=== PATIENT | female | born 1980 | race Caucasian/White ===

== ENCOUNTER 2017-06-26 19:06 | Emergency (ER) | payer OTHER ==
[~2017-06-26] VITALS: Ht 157.5 cm; Wt 52.2 kg
[~2017-06-26 19:06] MED LIST: ADDERALL XR 2020 MG PO; CYMBALTA20 MG PO; FIORICET 50-301 EACH PO; MIRALAX255 GM PO; PROPRANOLOL HCL80 M1 PO; REGLAN10 MG PO; SUBOXONE 2 MG-1 EACH SL; XANAX0.5 MG PO
[2017-06-26 19:56] LABS: ADD MIUA? YES; BILIRUBIN NEGATIVE; BLOOD NEGATIVE; GLUCOSE (STRIP) NEGATIVE; KETONES 5; LEUKOCYTES NEGATIVE; NITRITE NEGATIVE; PROTEIN (STRIP) NEGATIVE
[2017-06-26 19:59] LABS: BACTERIA RARE /HPF; EPITHELIAL CELLS RARE /HPF; MUCUS TRACE /LPF; RED BLOOD CELLS 0-5 /HPF (0-5); UCUL ADDED? NO; WHITE BLOOD CELLS 0-5 /HPF (0-5)
[2017-06-26 20:01] LABS: COLOR DK YELLOW ((YELLOW))
[2017-06-26 20:23] LABS: HEMATOCRIT 34.7 % (36.0-46.0); MCH 31.4 PG (29.0-34.0); MCHC 33.7 G/DL (30.0-36.0); PLATELET COUNT 319 K/uL (156-360); RBC DIS.WIDTH-CV 12.7 % (11.8-14.6); RBC DIS.WIDTH-SD 43.7 % (39-53); RED BLOOD COUNT 3.73 M/uL (3.80-5.20); WHITE BLOOD COUNT 9.7 K/uL (4.1-10.2)
[2017-06-26 20:31] LABS: CHLORIDE 105 mEq/L (99-109); POTASSIUM 3.6 mEq/L (3.7-5.4); SODIUM 136 mEq/L (136-147)
[2017-06-26 20:33] LABS: GLUCOSE 97 mg/dL (70-99)
[2017-06-26 20:35] LABS: ANION GAP 8 MEQ/L (2-14); TOTAL BILIRUBIN 0.4 mg/dL (0.0-1.0)
[2017-06-26 20:37] LABS: ALKALINE PHOSPHATASE 49 IU/L (3-129); GFR ESTIMATE (CALCULATED) > 59 mL/min/
[2017-06-26 20:38] LABS: UREA NITROGEN (BUN) 8 mg/dL (9-23)
[2017-06-26 20:40] LABS: LIPASE 32 U/L (1.0-51.0)
[2017-06-26 21:07] LABS: QUANTITATIVE HCG 18586.8 MIU/ML
[2017-06-26] MEDS ORDERED: ZOFRAN ODT4 MG PO (23:05)
[2017-06-26] MEDS ORDERED: PRENATAL VITAM1 EAC7 PO (23:05)
[2017-06-26 23:12] VITALS: BP 122/78
== END 2017-06-26 23:20 | disposition home or self-care (01) ==
LOC: EME 19:06
DX: O26.891 Other specified pregnancy related conditions, first trimester (principal); R10.2 Pelvic and perineal pain; R11.0 Nausea; O99.011 Anemia complicating pregnancy, first trimester; D64.9 Anemia, unspecified; O99.281 Endocrine, nutritional and metabolic diseases complicating pregnancy, first trimester; E86.0 Dehydration; O99.331 Smoking (tobacco) complicating pregnancy, first trimester; F17.200 Nicotine dependence, unspecified, uncomplicated; Z3A.01 Less than 8 weeks gestation of pregnancy
CPT/HCPCS: 76801; 80053; 81003; 83690; 84702; 85027; 99281; 99285; J7030

== ENCOUNTER 2017-11-12 18:57 | Outpatient (CLI) | payer OTHER ==
[~2017-11-12] VITALS: Ht 157.5 cm; Wt 62.8 kg
[~2017-11-12 18:57] MED LIST changes: +PRENATAL VITAM1 EAC7 PO; +ZOFRAN ODT4 MG PO
[2017-11-12 19:32] LABS: HEMATOCRIT 30.6 % (36.0-46.0); HEMOGLOBIN 10.6 G/DL (11.9-15.5); MCH 32.6 PG (29.0-34.0); MCHC 34.6 G/DL (30.0-36.0); MCV 94.2 FL (83-99); PLATELET COUNT 242 K/uL (156-360); RBC DIS.WIDTH-CV 12.5 % (11.8-14.6); RBC DIS.WIDTH-SD 43.3 % (39-53); RED BLOOD COUNT 3.25 M/uL (3.80-5.20); WHITE BLOOD COUNT 13.8 K/uL (4.1-10.2)
[2017-11-12 19:41] LABS: ALBUMIN 3.5 g/dL (3.2-4.8)
[2017-11-12 19:42] LABS: CHLORIDE 103 mEq/L (99-109); POTASSIUM 3.7 mEq/L (3.7-5.4); SODIUM 137 mEq/L (136-147)
[2017-11-12 19:44] LABS: GLUCOSE 96 mg/dL (70-99); TOTAL PROTEIN 6.2 g/dL (6.4-8.3)
[2017-11-12 19:46] LABS: TOTAL BILIRUBIN 0.4 mg/dL (0.0-1.0)
[2017-11-12 19:47] LABS: ALKALINE PHOSPHATASE 92 IU/L (3-129)
[2017-11-12 19:48] LABS: CREATININE 0.6 mg/dL (0.6-1.3); GFR ESTIMATE (CALCULATED) > 59 mL/min/
[2017-11-12 19:49] LABS: AST (GOT) 20 IU/L (2-34); UREA NITROGEN (BUN) 8 mg/dL (9-23)
[2017-11-12 19:51] LABS: ALT (GPT) 20 IU/L (3-49)
[2017-11-12 20:03] LABS: APPEARANCE SL.HAZY ((CLEAR)); BILIRUBIN SMALL; BLOOD NEGATIVE; COLOR AMBER ((YELLOW)); GLUCOSE (STRIP) NEGATIVE; KETONES 80; LEUKOCYTES NEGATIVE; NITRITE NEGATIVE; PROTEIN (STRIP) 30; SPECIFIC GRAVITY 1.028 (1.000-1.030)
[2017-11-12 20:24] LABS: BACTERIA RARE /HPF; EPITHELIAL CELLS 2+ /HPF; MUCUS TRACE /LPF; RED BLOOD CELLS 0-5 /HPF (0-5)
[2017-11-12 20:56] VITALS: BP 107/64
[2017-11-12] MEDS ORDERED: ZOFRAN8 MG PO (21:37)
[2017-11-12 21:51] LABS: AMPHETAMINE PRESUMPTIVE POSITIVE (500 ng/mL); BARBITURATES NEGATIVE (200 ng/mL); BENZODIAZEPINES PRESUMPTIVE POSITIVE (150 ng/mL); BUPRENORPHINE PRESUMPTIVE POSITIVE (10 ng/mL); COCAINE NEGATIVE (150 ng/mL); METHADONE NEGATIVE (200 ng/mL); METHAMPHETAMINE PRESUMPTIVE POSITIVE (500 ng/mL); OPIATES (MORPHINE) NEGATIVE (100 ng/mL); OXYCODONE NEGATIVE (100 ng/mL); PHENCYCLIDINE NEGATIVE (25 ng/mL); PROPOXYPHENE NEGATIVE (300 ng/mL); THC CANNABINOIDS PRESUMPTIVE POSITIVE (50 ng/mL); TRICYCLIC ANTIDEPRESSANTS NEGATIVE (300 ng/mL)
[2017-11-12 22:53] LABS: BENZODIAZEPINES, URINE SCREEN POSITIVE (200 ng/mL)
[2017-11-14 09:41] LABS: TREPONEMA ANTIBODY NEGATIVE (NEGATIVE)
[2017-11-14 11:53] LABS: HEPATITIS B SURFACE ANTIGEN Nonreactive; HEPATITIS C ANTIBODY Nonreactive
[2017-11-14 11:54] LABS: ANTI-HEPATITIS A VIRUS (IGM) Nonreactive
[2017-11-14 11:56] LABS: ANTI-HEPATITIS B CORE (IGM) Nonreactive; HIV-1/2 AB/AG COMBO Nonreactive
== END 2017-11-12 23:00 | disposition home or self-care (01) ==
LOC: EME 18:57 → LDRP-OP 18:57 → EME 20:39 → EDSTATUS 20:42 → 2WEST 20:45
PROVIDERS: Physician Assistant
DX: O21.9 Vomiting of pregnancy, unspecified (principal); Z3A.25 25 weeks gestation of pregnancy; O09.522 Supervision of elderly multigravida, second trimester; O34.219 Maternal care for unspecified type scar from previous cesarean delivery; O99.332 Smoking (tobacco) complicating pregnancy, second trimester; F17.200 Nicotine dependence, unspecified, uncomplicated; O99.342 Other mental disorders complicating pregnancy, second trimester; F41.9 Anxiety disorder, unspecified; F32.9 Major depressive disorder, single episode, unspecified; O99.322 Drug use complicating pregnancy, second trimester; F11.20 Opioid dependence, uncomplicated; O09.32 Supervision of pregnancy with insufficient antenatal care, second trimester
CPT/HCPCS: 59025; 80053; 80074; 81003; 84999; 85027; 86762; 86780; 86787; 86850; 86900; 86901; 87389; G0378; J7120

== ENCOUNTER 2018-01-18 19:45 | Outpatient (CLI) | payer OTHER ==
[~2018-01-18] VITALS: Ht 157.5 cm; Wt 64.9 kg
[2018-01-18 19:44] VITALS: BP 125/59
[~2018-01-18 19:45] MED LIST changes: -CYMBALTA20 MG PO; +CYMBALTA60 MG PO; +ZOFRAN8 MG PO
[2018-01-18] MEDS ORDERED: BUPRENORPHINE HC8 MG SL (20:15)
== END 2018-01-18 21:15 | disposition home or self-care (01) ==
LOC: LDRP-OP 19:45 → 2WEST 19:46 → LDRP-OP 04-05 23:32
DX: O47.03 False labor before 37 completed weeks of gestation, third trimester (principal); O99.343 Other mental disorders complicating pregnancy, third trimester; F41.9 Anxiety disorder, unspecified; F32.9 Major depressive disorder, single episode, unspecified; O99.333 Smoking (tobacco) complicating pregnancy, third trimester; F17.200 Nicotine dependence, unspecified, uncomplicated; O99.323 Drug use complicating pregnancy, third trimester; F11.20 Opioid dependence, uncomplicated; O09.523 Supervision of elderly multigravida, third trimester; O34.219 Maternal care for unspecified type scar from previous cesarean delivery; O99.353 Diseases of the nervous system complicating pregnancy, third trimester; G43.909 Migraine, unspecified, not intractable, without status migrainosus; Z88.6 Allergy status to analgesic agent; Z91.041 Radiographic dye allergy status; Z3A.35 35 weeks gestation of pregnancy
CPT/HCPCS: 59025; 87081; 87653; G0378

== ENCOUNTER 2018-02-13 05:14 | Inpatient (IN) | payer OTHER ==
[2018-02-13] VITALS (10 sets, daily range): BP systolic 95–113; BP diastolic 51–66
[~2018-02-13] VITALS: Ht 157.5 cm; Wt 65.8 kg
[~2018-02-13 05:14] MED LIST changes: +ADDERALL XR 3030 MG PO; +BUPRENORPHINE HC8 MG SL; +INDERAL40 MG PO; +PRENATAL TABLE1 EAC3 PO; -PROPRANOLOL HCL80 M1 PO; +SUBUTEX SL
[2018-02-13 06:05] LABS: BASOPHIL (%) 0.3 % (0-1); EOSINOPHIL (%) 0.7 % (0-5); EOSINOPHIL COUNT 0.1 K/uL (0-0.3); HEMATOCRIT 31.1 % (36.0-46.0); HEMOGLOBIN 10.2 G/DL (11.9-15.5); IMMATURE GRANULOCYTE (%) 0.5 % (0.0-0.7); LYMPHOCYTE (%) 29.1 % (15-42); LYMPHOCYTE COUNT 2.7 K/uL (1.0-2.8); MCH 28.5 PG (29.0-34.0); MCHC 32.8 G/DL (30.0-36.0); MCV 86.9 FL (83-99); MONOCYTE (%) 7.1 % (3-12); MONOCYTE COUNT 0.7 K/uL (0-0.8); NEUTROPHIL (%) 62.3 % (45-76); NEUTROPHIL COUNT 5.8 K/uL (1.8-6.4); NRBC (%) 1.5 /100 WBC (0-0); PLATELET COUNT 249 K/uL (156-360); RBC DIS.WIDTH-CV 14.2 % (11.8-14.6); RED BLOOD COUNT 3.58 M/uL (3.80-5.20); WHITE BLOOD COUNT 9.4 K/uL (4.1-10.2)
[2018-02-13 06:26] LABS: AMPHETAMINE PRESUMPTIVE POSITIVE (500 ng/mL); BARBITURATES NEGATIVE (200 ng/mL); BENZODIAZEPINES PRESUMPTIVE POSITIVE (150 ng/mL); COCAINE NEGATIVE (150 ng/mL); METHADONE NEGATIVE (200 ng/mL); METHAMPHETAMINE NEGATIVE (500 ng/mL); OPIATES (MORPHINE) NEGATIVE (100 ng/mL); OXYCODONE NEGATIVE (100 ng/mL); PHENCYCLIDINE NEGATIVE (25 ng/mL); PROPOXYPHENE NEGATIVE (300 ng/mL); THC CANNABINOIDS NEGATIVE (50 ng/mL); TRICYCLIC ANTIDEPRESSANTS NEGATIVE (300 ng/mL)
[2018-02-13 06:27] LABS: BUPRENORPHINE PRESUMPTIVE POSITIVE (10 ng/mL)
[2018-02-13 07:07] LABS: BENZODIAZEPINES, URINE SCREEN POSITIVE (200 ng/mL)
[2018-02-14 03:20] VITALS: BP 109/63
[2018-02-14 06:34] LABS: BASOPHIL (%) 0.2 % (0-1); EOSINOPHIL (%) 0.2 % (0-5); HEMATOCRIT 26.5 % (36.0-46.0); HEMOGLOBIN 8.4 G/DL (11.9-15.5); IMMATURE GRANULOCYTE (%) 0.5 % (0.0-0.7); LYMPHOCYTE (%) 28.6 % (15-42); LYMPHOCYTE COUNT 3.7 K/uL (1.0-2.8); MCH 27.8 PG (29.0-34.0); MCHC 31.7 G/DL (30.0-36.0); MCV 87.7 FL (83-99); MONOCYTE (%) 6.9 % (3-12); MONOCYTE COUNT 0.9 K/uL (0-0.8); NEUTROPHIL (%) 63.6 % (45-76); NEUTROPHIL COUNT 8.2 K/uL (1.8-6.4); NRBC (%) 0.5 /100 WBC (0-0); PLATELET COUNT 258 K/uL (156-360); RBC DIS.WIDTH-SD 44.5 % (39-53); RED BLOOD COUNT 3.02 M/uL (3.80-5.20)
[2018-02-14 07:20] VITALS: BP 105/56
[2018-02-14 11:57] VITALS: BP 107/58
[2018-02-14 14:48] VITALS: BP 119/56
[2018-02-15 07:15] VITALS: BP 103/51
[2018-02-15 14:40] VITALS: BP 108/53
[2018-02-17 02:10] VITALS: BP 110/54
[2018-02-17 04:10] VITALS: BP 110/54
[2018-02-17] MEDS ORDERED: TYLENOL EXTRA500 MG PO (09:36)
[2018-02-17] MEDS ORDERED: BENADRYL25 MG PO (15:48)
== END 2018-02-17 19:00 | disposition home or self-care (01) | DRG 765 ==
LOC: 2WEST 05:14 → 2SOUTH 08:49 → 2WEST 02-14 15:21
PROVIDERS: Obstetrics & Gynecology
DX: O34.211 Maternal care for low transverse scar from previous cesarean delivery (principal); O99.324 Drug use complicating childbirth; F11.20 Opioid dependence, uncomplicated; O99.02 Anemia complicating childbirth; D62 Acute posthemorrhagic anemia; F17.210 Nicotine dependence, cigarettes, uncomplicated; O99.334 Smoking (tobacco) complicating childbirth; Z37.0 Single live birth; O99.344 Other mental disorders complicating childbirth; F41.9 Anxiety disorder, unspecified; Z3A.39 39 weeks gestation of pregnancy; Z30.2 Encounter for sterilization; F32.9 Major depressive disorder, single episode, unspecified; Z88.6 Allergy status to analgesic agent; R21 Rash and other nonspecific skin eruption
CPT/HCPCS: 84999; 85025; 86850; 86900; 86901; 88302; J0571; J0690; J2250; J2274; J2550; J3010; J7120; S0020